=== PATIENT | female | born 1955 | race Caucasian/White ===

== ENCOUNTER 2017-09-01 10:15 | Day surgery (SDC) | payer OTHER ==
[2017-08-31 11:41] VITALS: BMI 58.2
[2017-09-01] MEDS ORDERED: Propofol 200 MG/20 ML VIAL ONE (12:55)
--- NOTE | 2017-09-01 14:35 | OP ---
DATE OF PROCEDURE: 09/01/2017 PROCEDURES: 1. Esophagogastroduodenoscopy with biopsy. 2. Colonoscopy with snare polypectomy. PHYSICIAN: Tristan Melendez M.D. PREMEDICATION: Given by Anesthesiology Department. PREPROCEDURE DIAGNOSES: 1. Gastroesophageal reflux disease. 2. Recent diverticulitis. 3. History of Helicobacter pylori infection. POSTPROCEDURE DIAGNOSES: 1. Small hiatal hernia, otherwise normal upper endoscopy. 2. Diverticulosis coli. 3. Ascending colon polyp, status post removal. PROCEDURE IN DETAIL: A written consent was obtained prior to the procedure. After adequate sedatio n, the forward-viewing endoscope was advanced down the stomach under direct vision to the second por tion of duodenum. Both the second portion and the bulb appeared normal. The pylorus was patent. T he gastric antrum, body, fundus, and cardia appeared normal. Retroflexion showed a 2 cm chery slidin g-type hiatal hernia. The GE junction appeared normal with Z-line located at 40 cm. The esophagus appeared normal. There were no signs of esophagitis. Biopsies were obtained from gastric antrum fo r H. pylori. The patient was then repositioned for colon exam. A digital exam was normal. The endoscope was adv anced to the cecum. The quality of the bowel prep was good. The appendiceal orifice were identifie d and appeared normal. The ileocecal valve appeared normal. In the proximal ascending colon, a 4 m m sessile polyp was noted and was removed with cold snare and retrieved. The transverse colon and d escending colon appeared normal. Scattered diverticula were noted in the sigmoid colon. The rectal vault appeared normal. Retroflexion was normal. The patient tolerated procedure well. ASSESSMENT: 1. Small hiatal hernia, sliding type. 2. Otherwise normal upper endoscopy. 3. Diverticulosis coli. 4. Ascending colon polyp, 4 mm, removed. RECOMMENDATIONS: 1. Antireflux lifestyle discussed with patient. 2. Weight reduction. 3. Follow up H. pylori biopsy. 4. Continue pantoprazole 40 mg p.o. q.a.m.
== END 2017-09-01 14:04 | disposition home or self-care (01) ==
LOC: SDC 10:15
PROVIDERS: ATTEND Internal Medicine Gastroenterology
PROC: 0DBK8ZX Excision of Ascending Colon, Via Natural or Artificial Opening Endoscopic, Diagnostic (ICD-10-PCS; principal; 2017-09-01)
PROC: 0DB78ZX Excision of Stomach, Pylorus, Via Natural or Artificial Opening Endoscopic, Diagnostic (ICD-10-PCS; principal; 2017-09-01)
DX: Z12.11 Encounter for screening for malignant neoplasm of colon (principal); D12.2 Benign neoplasm of ascending colon; K44.9 Diaphragmatic hernia without obstruction or gangrene; K57.30 Diverticulosis of large intestine without perforation or abscess without bleeding; I10 Essential (primary) hypertension; E11.9 Type 2 diabetes mellitus without complications; K21.9 Gastro-esophageal reflux disease without esophagitis; F32.9 Major depressive disorder, single episode, unspecified; Z79.01 Long term (current) use of anticoagulants; Z79.4 Long term (current) use of insulin; Z79.899 Other long term (current) drug therapy; Z88.8 Allergy status to other drugs, medicaments and biological substances; Z90.49 Acquired absence of other specified parts of digestive tract; Z90.710 Acquired absence of both cervix and uterus; Z98.890 Other specified postprocedural states; Z87.891 Personal history of nicotine dependence
CPT/HCPCS: 36416; 88305; 88312; J2704

== ENCOUNTER 2018-12-28 10:47 | Outpatient (CLI) | payer OTHER | END 2018-12-28 10:48 | disposition home or self-care (01) | LOC: BICMAMMO 10:47 | PROVIDERS: ATTEND Obstetrics & Gynecology | DX: Z12.31 Encounter for screening mammogram for malignant neoplasm of breast (principal) | CPT/HCPCS: 77063; 77067 ==

== ENCOUNTER 2021-07-30 09:49 | Outpatient (CLI) | payer MEDICARE, OTHER | END 2021-07-30 09:50 | disposition home or self-care (01) | LOC: BICMAMMO 09:49 | PROVIDERS: ATTEND Obstetrics & Gynecology | DX: Z12.31 Encounter for screening mammogram for malignant neoplasm of breast (principal) | CPT/HCPCS: 77063; 77067 ==

== ENCOUNTER 2022-05-31 09:45 | Inpatient (IN) | payer MEDICARE, OTHER ==
[2022-05-31 14:21] VITALS: BMI 61.9
[2022-06-02] MEDS ORDERED: fentaNYL Citrate/PF 100 MCG/2 ML SYRINGE ONE (06:40)
[2022-06-02] MEDS ORDERED: Lidocaine 1% w/Epinephrine 1:100K 20 ML VIAL ONE (06:41)
[2022-06-02] MEDS ORDERED: Bupivacaine 0.25% HCL 30 ML VIAL ONE (06:41)
[2022-06-02] MEDS ORDERED: Heparin 5,000 UNITS/ML VIAL ONE (06:57)
[2022-06-02] MEDS ORDERED: CEFAZOLIN 2 GM VIAL ONE (07:23)
[2022-06-02] MEDS ORDERED: Sodium Chloride 0.9% 100 ML ONE (07:23)
[2022-06-02] MEDS ORDERED: Ketorolac Tromethamine 30 MG/ML VIAL ONE ×2 (07:40→11:36)
[2022-06-02] MEDS ORDERED: Ondansetron PF 4 MG/2 ML Vial ONE (07:40)
[2022-06-02] MEDS ORDERED: Dexamethasone 20 MG/5 ML VIAL ONE (07:40)
[2022-06-02] MEDS ORDERED: Rocuronium Bromide 10 MG/ML (10ML VIAL) ONE (07:40)
[2022-06-02] MEDS ORDERED: Atropine Sulfate 1 mg/10 ml Syringe ONE (07:40)
[2022-06-02] MEDS ORDERED: Lidocaine 1% PF 5 ML VIAL ONE (07:40)
[2022-06-02] MEDS ORDERED: ePHEDrine 50 MG/ML VIAL ONE (07:40)
[2022-06-02] MEDS ORDERED: PROPOFOL 200 MG/20 ML VIAL ONE (07:40)
[2022-06-02] MEDS ORDERED: SUGAMMADEX SODIUM 200 MG/2 ML VIAL ONE (08:31)
[2022-06-02] MEDS ORDERED: Ondansetron PF 4 MG/2 ML Vial IVP PRN (09:22)
[2022-06-02] MEDS ORDERED: hydrALAZINE 20 MG/ML VIAL SLOW IVP PRN (09:22)
[2022-06-02] MEDS ORDERED: Dextrose 50% Abboject 50 ML SYRINGE SLOW IVP PRN ×2 (09:22→09:25)
[2022-06-02] MEDS ORDERED: Dextrose 5% in Water 1,000 ML IV PRN ×2 (09:22→09:25)
[2022-06-02] MEDS ORDERED: diphenhydrAMINE 50 MG/ML VIAL IVP PRN (09:22)
[2022-06-02] MEDS ORDERED: Promethazine HCl 25 MG/ML VIAL IM PRN ×2 (09:22→09:38)
[2022-06-02] MEDS ORDERED: Morphine 2 MG/ML VIAL SLOW IVP PRN (09:22)
[2022-06-02] MEDS ORDERED: Hydrocodone-Acetamin 15 ML UDCUP PO PRN (09:22)
[2022-06-02] MEDS ORDERED: Morphine 4 MG/ML VIAL SLOW IVP PRN (09:22)
[2022-06-02] MEDS ORDERED: Insulin Regular 300 UNITS/3 ML VIAL SC PRN (09:25)
[2022-06-02] MEDS ORDERED: ceFAZolin 2 GM/Dextrose 50 ML 2 GM in Premix Bag 1 BAG IVPB SCH (09:30)
[2022-06-02] MEDS ORDERED: Ketorolac Tromethamine 30 MG/ML VIAL IVP PRN (09:38)
[2022-06-02] MEDS ORDERED: HYDROmorphone 2 MG/ML VIAL SLOW IVP PRN (09:38)
[2022-06-02] MEDS ORDERED: Ondansetron HCl/PF 4 MG/2 ML Vial IVP PRN (09:38)
[2022-06-02] MEDS ORDERED: Promethazine HCl 25 MG/ML VIAL IVPB PRN (09:38)
[2022-06-02] MEDS ORDERED: Promethazine HCl 25 MG/ML VIAL ONE (09:56)
[2022-06-02] MEDS: Ketorolac Tromethamine 30 MG/ML VIAL IVP SCH ×4 (11:51→23:09)
[2022-06-02] MEDS: CEFAZOLIN 2 GM in Sodium Chloride 0.9% 100 ML IVPB SCH ×2 (15:09→22:20)
[2022-06-02] MEDS: 1/2 NS w/KCL 20 mEq 1,000 ML IV SCH ×2 (17:09→19:59)
[2022-06-02] MEDS ORDERED: Allopurinol 300 MG TAB PO SCH (21:00)
[2022-06-02] MEDS ORDERED: Fenofibrate 48 MG TAB PO SCH (21:00)
[2022-06-02] MEDS: busPIRone HCl 10 MG TAB PO SCH (22:20)
[2022-06-02] MEDS ORDERED: Sotalol HCl 80 MG TAB PO SCH (22:30)
[2022-06-03] MEDS: 1/2 NS w/KCL 20 mEq 1,000 ML IV SCH ×2 (02:10→08:51)
[2022-06-03] MEDS: Ketorolac Tromethamine 30 MG/ML VIAL IVP SCH ×2 (05:56→11:14)
[2022-06-03] MEDS ORDERED: Levothyroxine Sodium 88 MCG TAB PO SCH (06:00)
[2022-06-03 06:04] LABS: #Lymphocytes 1.4 thou/uL (1.20-3.40); #Monocytes 0.5 thou/uL (0.11-0.59); #Neutrophils 10.4 thou/uL (1.40-6.50); %Basophils 0.3 % (0.0-1.0); %Eosinophils 0.1 % (0.0-10.0); %Lymphocytes 11.5 % (21.0-51.0); %Monocytes 4.1 % (0.0-10.0); Hemoglobin 11.1 g/dL (12.0-16.0); Mean Corpuscular Hemoglobin 31.2 pg (27.0-31.0); Mean Corpuscular Volume 94.6 fL (78.0-98.0); Mean Platelet Volume 9.9 fL (7.4-10.4); Platelet Count 163 thou/uL (130-400); RBC Distribution Width 14.9 % (11.5-14.5); Red Blood Cell (RBC) Count 3.55 mill/uL (4.20-5.40); White Blood Cell (WBC) Count 12.4 thou/uL (4.8-10.8)
[2022-06-03 06:43] LABS: Anion Gap 21 mmol/L (10-20); BUN (Urea Nitrogen) 52 mg/dL (9.8-20.1); Calc. Creatinine Clearance 90 mL/min (70-130); Calcium 9.5 mg/dL (7.8-10.44); Carbon Dioxide 25 mmol/L (23-31); Chloride 98 mmol/L (98-107); Estimated GFR 36; Glucose 201 mg/dL (80-115); Potassium 4.3 mmol/L (3.5-5.1); Sodium 140 mmol/L (136-145)
[2022-06-03] MEDS: busPIRone HCl 10 MG TAB PO SCH (08:06)
[2022-06-03 08:13] VITALS: BP 136/79; TEMP 97.6
[2022-06-03] MEDS ORDERED: Losartan 25 MG TAB PO SCH (09:00)
[2022-06-03] MEDS ORDERED: Torsemide 100 MG TAB PO SCH (09:00)
[2022-06-03] MEDS ORDERED: Sotalol HCl 80 MG TAB PO SCH (09:00)
[2022-06-03] MEDS ORDERED: Pantoprazole 40 MG VIAL IVP SCH (09:00)
[2022-06-03] MEDS ORDERED: Enoxaparin Sodium 40 MG/0.4 ML SYRINGE SC SCH (09:00)
== END 2022-06-03 10:57 | disposition home or self-care (01) | DRG 621 ==
LOC: SURG A 06-02 06:00 → SURG B 06-02 14:06
PROVIDERS: ADMIT Surgery; ATTEND Surgery
PROC: 0DB64Z3 Excision of Stomach, Percutaneous Endoscopic Approach, Vertical (ICD-10-PCS; principal; 2022-06-02)
DX: E66.01 Morbid (severe) obesity due to excess calories (principal); I10 Essential (primary) hypertension; E11.9 Type 2 diabetes mellitus without complications; E78.5 Hyperlipidemia, unspecified; Z68.44 Body mass index [BMI] 60.0-69.9, adult; Z79.84 Long term (current) use of oral hypoglycemic drugs; Z79.890 Hormone replacement therapy; Z79.4 Long term (current) use of insulin; Z79.899 Other long term (current) drug therapy; Z88.8 Allergy status to other drugs, medicaments and biological substances; Z90.49 Acquired absence of other specified parts of digestive tract; Z90.710 Acquired absence of both cervix and uterus
CPT/HCPCS: 36415; 36416; 71046; 80048; 80053; 83036; 85025; 87811; 88307; C1713; C9113; J0461; J0690; J1100; J1644; J1650; J1815; J1885; J2405; J2550; J2704; J3480; J3490; S0020

== ENCOUNTER 2022-05-31 09:46 | Outpatient (CLI) | payer MEDICARE, OTHER ==
[2022-05-31 11:14] LABS: #Basophils 0.1 10x3/uL (0.0-0.2); #Eosinphils 0.1 10x3/uL (0.0-0.5); #Monocytes 0.4 10x3/uL (0.0-1.1); #Neutrophils 6.8 10x3/uL (1.5-8.4); %Basophils 0.6 % (0.0-2.0); %Eosinophils 0.6 % (0.0-6.0); %Monocytes 4.7 % (0.0-10.0); %Neutrophils 71.8 % (40.0-75.0); Hemoglobin 10.9 g/dL (12.0-15.5); Mean Corpuscular HGB CONC 33.1 g/dL (32.0-36.0); Mean Corpuscular Hemoglobin 30.9 pg (27.0-33.0); Mean Corpuscular Volume 93.2 fl (81.6-98.3); Mean Platelet Volume 12.6 fl (7.4-10.4); Platelet Count 182 10x3/uL (150-450); RBC Distribution Width 15.3 % (11.5-14.5); Red Blood Cell (RBC) Count 3.53 10x6/uL (3.90-5.03); White Blood Cell (WBC) Count 9.4 10x3/uL (3.5-10.5)
[2022-05-31 11:54] LABS: Chloride 97 mmol/L (98-107); Potassium 3.8 mmol/L (3.5-5.1); Sodium 139 mmol/L (136-145)
[2022-05-31 12:23] LABS: ALT (SGPT) 32 U/L (8-55); AST (SGOT) 24 U/L (5-34); Albumin 4.1 g/dL (3.4-4.8); Alkaline Phosphatase 65 U/L (40-110); BUN (Urea Nitrogen) 53 mg/dL (9.8-20.1); Bilirubin, Total 0.7 mg/dL (0.2-1.2); Calc. Creatinine Clearance 0 mL/min (70-130); Carbon Dioxide 30 mmol/L (23-31); Estimated GFR 56; Globulin 2.3 g/dL (2.4-3.5); Glucose 191 mg/dL (80-115); Protein, Total 6.4 g/dL (5.8-8.1)
[2022-05-31 12:48] LABS: Anion Gap 16 mmol/L (10-20)
[2022-05-31 14:10] LABS: Hemoglobin A1c 6.6 % (4.0-6.0)
== END 2022-05-31 09:47 | disposition home or self-care (01) ==
LOC: LABBT 09:46
PROVIDERS: ATTEND Surgery
DX: Z01.818 Encounter for other preprocedural examination (principal); E78.5 Hyperlipidemia, unspecified; E11.9 Type 2 diabetes mellitus without complications; I10 Essential (primary) hypertension; Z68.44 Body mass index [BMI] 60.0-69.9, adult; Z20.822 Contact with and (suspected) exposure to COVID-19
CPT/HCPCS: 71046; 80053; 83036; 85025; 87811

== ENCOUNTER 2022-08-05 09:45 | Outpatient (CLI) | payer MEDICARE, OTHER | END 2022-08-05 09:46 | disposition home or self-care (01) | LOC: BICMAMMO 09:45 | PROVIDERS: ATTEND Obstetrics & Gynecology | DX: Z12.31 Encounter for screening mammogram for malignant neoplasm of breast (principal) | CPT/HCPCS: 77063; 77067 ==

== ENCOUNTER 2023-10-18 09:29 | Outpatient (CLI) | payer MEDICARE, OTHER | END 2023-10-18 09:30 | disposition home or self-care (01) | LOC: BICMAMMO 09:29 | PROVIDERS: ATTEND Obstetrics & Gynecology | DX: Z13.820 Encounter for screening for osteoporosis (principal); Z78.0 Asymptomatic menopausal state | CPT/HCPCS: 77080 ==